=== PATIENT | male | born 1995 | race Caucasian/White ===

== ENCOUNTER 2022-08-19 08:21 | Outpatient (REF) | payer SELFPAY ==
[2022-08-19 08:22] VITALS: BP 139/103; PULSE 110; RESP 16; TEMP 35.9; O2SAT 100
--- NOTE | 2022-08-19 08:32 | EKG12_ITS ---
Test Reason : CLERENCE Blood Pressure : / mmHG Vent. Rate : 094 BPM Atrial Rate : 094 BPM P-R Int : 132 ms QRS Dur : 106 ms QT Int : 354 ms P-R-T Axes : 079 075 072 degrees QTc Int : 442 ms Normal sinus rhythm Incomplete right bundle branch block Borderline ECG Confirmed by CARRI CRUZ, AJNE ([id number]), development editor MIREYA TREVIZO ([id number]) on 08/21/2022 12:54:39 PM Referred By: Confirmed By:JANE CHRISTINA MD
[2022-08-19 08:34] VITALS: BMI 22.3
--- NOTE | 2022-08-19 08:34 | NURSING ---
NO OLD EKGS
[2022-08-19 09:02] LABS: Absolute Lymphocyte Count 2.53 X10^3/uL (0.83-4.51); Absolute Neutrophil Count 8.3 X10^3/uL (2.0-7.7); Basophil# 0.04 X10^3/uL; Basophil% 0.3 % (0-1); Eosinophil# 0.04 X10^3/uL; Eosinophils% 0.3 % (0-5); Hematocrit 47.6 % (40-54); Hemoglobin 16.2 g/dL (13.0-16.5); Lymphocyte # 2.53 X10^3/ul (0.83-4.51); Lymphocyte % 21.5 % (19-41); Mean Corpuscular Volume 88.1 fL (80-94); Mean Platelet Vol. 11.9 fl (6.2-12.0); Monocyte# 0.85 X10^3/uL; Monocyte% 7.2 % (0-10); NRBC Flagged by Analyzer 0 % (0-5); Neutrophil # 8.29 X10^3/uL (2.7-7.7); Neutrophil % 70.4 % (47-70); Platelet Count 230 K/mm3 (150-450); RBC Distribution Width CV 12.8 % (11.6-14.6); RBC Distribution Width SD 41.4 fl (35.1-43.9); White Blood Count 11.8 K/mm3 (4.4-11.0)
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
[2022-08-19 09:14] LABS: Anion Gap 6 (5-15); BUN 14 mg/dL (7-18); BUN/Creat Ratio 13.3 RATIO (10-20); Calcium,Total 9.5 mg/dL (8.5-10.1); Chloride 105 mmol/L (98-107); Creatinine, Serum 1.05 mg/dL (0.70-1.30); EST Glomerular Filtration Rate 89 mL/min (>60); Est Glom Filt Rate - Afr Amer 107 mL/min (>60); Estimated Creatinine Clearance 106.56 ml/min; Glucose 101 mg/dL (74-106); Potassium 4.1 mmol/L (3.5-5.1); Sodium Level 141 mmol/L (136-145)
[2022-08-19 09:29] LABS: Alcohol, Blood (Medical)-Serum < 3.0 mg/dL
[2022-08-19 09:34] LABS: Amphetamine Urine VISTA POSITIVE (<1000 ng/mL); Barbiturate Urine VISTA NEGATIVE (< 200 ng/mL); Benzodiazepine Urine VISTA NEGATIVE (< 200 ng/mL); Cocaine Urine VISTA NEGATIVE (< 300 ng/mL); Ecstacy Urine VISTA NEGATIVE (< 500 ng/mL); Methadone Urine VISTA NEGATIVE (< 300 ng/mL); PCP Urine VISTA NEGATIVE (< 25 ng/mL); THC Urine VISTA POSITIVE (< 50 ng/mL); Vista UDS pH Range 6
== END 2022-08-19 10:40 | disposition home or self-care (01) ==
LOC: ED 08:21
PROVIDERS: Visit Provider Student in an Organized Health Care Education/Training Program
DX: Z02.89 Encounter for other administrative examinations (principal); F23 Brief psychotic disorder; F17.210 Nicotine dependence, cigarettes, uncomplicated
CPT/HCPCS: 93005; 36415; 80048; 80307; 82077; 85025; 87811